=== PATIENT | female | born 1960 | race Caucasian/White ===

== ENCOUNTER 2023-07-28 14:40 | Outpatient (CLI) | payer OTHER ==
[~2023-07-28 14:40] MED LIST: ASA81 MG; MOTRIN800 MG; TORADOL10 MG
== END 2023-07-28 14:52 | disposition home or self-care (01) ==
LOC: RAD 14:40
DX: M19.011 Primary osteoarthritis, right shoulder (principal)

== ENCOUNTER 2023-10-20 12:59 | Outpatient (CLI) | payer OTHER | END 2023-10-20 13:20 | disposition home or self-care (01) | LOC: RAD 12:59 | DX: M19.011 Primary osteoarthritis, right shoulder (principal) ==

== ENCOUNTER 2024-12-08 02:22 | Inpatient (IN) | payer OTHER ==
[~2024-12-08] VITALS: Ht 170.2 cm; Wt 90.7 kg
[2024-12-08] MEDS ORDERED: SYNTHROID175 MCG PO (02:30)
[2024-12-08] MEDS ORDERED: COZAAR100 MG PO (02:31)
[2024-12-08] MEDS ORDERED: METFORMIN HCL500 M3 (02:31)
[2024-12-08] MEDS ORDERED: KETOROLAC TROMETHAMINE 60 MG VIAL IM STA (05:13)
[2024-12-08] MEDS ORDERED: KETOROLAC TROMETHAMINE 60 MG VIAL IM ONE (05:22)
[2024-12-08 06:13] LABS: PH,URINE 5.5 (5.0-8.0); URINE APPEARANCE Clear; URINE BILIRRUBIN Negative (NEGATIVE); URINE BLOOD Negative; URINE COLOR Yellow; URINE GLUCOSE Negative (NEGATIVE); URINE KETONE Trace (NEGATIVE); URINE LEUKOCYTE Trace; URINE NITRATE Negative; URINE PROTEIN Negative (NEGATIVE)
[2024-12-08 06:15] LABS: HEMOGLOBIN 14.1 g/dL (12.0-15.00); MEAN CELL VOLUME 92.2 fL (80.00-100.00); MEAN CORPUSCULAR HEMOGLOBIN 30.8 pg (27.00-32.0); MEAN CORPUSCULAR HGB CONC 33.5 g/dl (32.0-36.0); PLATELET COUNT 374 K/uL (150-450); RED BLOOD COUNT 4.56 M/uL (4.00-6.00); RED CELL DISTRIBUTION WIDTH 12.9 % (11.5-14.5)
[2024-12-08 06:22] LABS: URINE BACTERIA 458.9 uL (0.0-1933); URINE CAST 1.47 uL (0.0-1.40); URINE EPITHELIAL CELLS 36.8 uL (0.0-38.8); URINE RBC 4.4 uL (0.0-20.8); URINE WBC 5.5 uL (0.0-23.2)
[2024-12-08 07:06] LABS: CALCIUM 9.7 mg/dL (8.5-10.1); CREATININE SERUM 0.72 mg/dL (0.55-1.02); GFR 81.55; POTASSIUM 4.47 mEq/L (3.5-5.1)
[2024-12-08] MEDS ORDERED: ORPHENADRINE CITRATE 30 MG/ML AMPUL IM STA (07:46)
[2024-12-08] MEDS ORDERED: ORPHENADRINE CITRATE 30 MG/ML AMPUL ONE (07:53)
[2024-12-08] MEDS ORDERED: 0.9 % SODIUM CHLORIDE 1,000 ML IV ONE (08:30)
[2024-12-08] MEDS ORDERED: BARIUM SULFATE 450 ML ORAL.SUSP PO ONE (08:58)
[2024-12-08] MEDS ORDERED: ACETAMINOPHEN 500 MG GEL..CAP PO PRN (17:45)
[2024-12-08] MEDS ORDERED: HYOSCYAMINE SULFATE 0.125 MG TAB.SUBL PO ONE (17:45)
[2024-12-08] MEDS ORDERED: FAMOTIDINE IV PUSH ONE (17:45)
[2024-12-08] MEDS ORDERED: DEXTROSE 50 % IN WATER 0.5 G/ML DISP.SYRIN IV PRN (17:45)
[2024-12-08] MEDS ORDERED: INSULIN LISPRO 1,000 UNIT/10 ML UNITS SUBCUTANEO PRN (17:45)
[2024-12-08] MEDS ORDERED: SODIUM CHLORIDE 0.9% IV PUSH ONE (17:45)
[2024-12-08] MEDS ORDERED: ONDANSETRON HCL 4 MG in 0.9 % SODIUM CHLORIDE 50 ML IV PRN (17:45)
[2024-12-08] MEDS ORDERED: 0.9 % SODIUM CHLORIDE 1,000 ML IV SCH (17:45)
[2024-12-08] MEDS ORDERED: MORPHINE SULFATE 4 MG/ML CARTRIDGE IV ONE (17:45)
[2024-12-08] MEDS ORDERED: ACETAMINOPHEN 500 MG GEL..CAP PO ONE (17:45)
[2024-12-08] MEDS ORDERED: PIPERACILLIN/TAZOBACTAM SODIUM 3.375 GM in 0.9 % SODIUM CHLORIDE 100 ML IV SCH (18:00)
[2024-12-08] MEDS ORDERED: ONDANSETRON HCL 2 MG/ML VIAL ONE (18:00)
[2024-12-08] MEDS ORDERED: PIPERACILLIN/TAZOBACTAM SODIUM 3.375 GM VIAL IV ONE (18:00)
[2024-12-08] MEDS ORDERED: HYOSCYAMINE SULFATE 0.125 MG TAB.SUBL ONE (18:00)
[2024-12-08] MEDS ORDERED: FAMOTIDINE/PF 20 MG/2 ML VIAL ONE (18:01)
[2024-12-08 18:51] LABS: INR 1.05; PARTIAL THROMBOPLASTIN TIME 30.3 SECONDS (22.0-34.0); PROTHROMBIN TIME 11.4 SECONDS (9.0-11.5)
[2024-12-08] MEDS ORDERED: MORPHINE SULFATE 2 MG/ML CARTRIDGE IV SCH (23:00)
[2024-12-09 01:00] VITALS: BP 115/63; O2SAT 95
[2024-12-09] MEDS ORDERED: LEVOTHYROXINE SODIUM 175 MCG TABLET PO SCH (06:00)
[2024-12-09 08:50] VITALS: BP 154/73
[2024-12-09] MEDS ORDERED: ENOXAPARIN SODIUM 40 MG/0.4 ML SYRINGE SUBCUTANEO SCH (09:00)
[2024-12-09] MEDS ORDERED: FAMOTIDINE/PF 20 MG in 0.9 % SODIUM CHLORIDE 8 ML IV PUSH SCH (09:00)
[2024-12-09] MEDS ORDERED: LOSARTAN POTASSIUM 100 MG TABLET PO SCH (09:00)
[2024-12-09] MEDS ORDERED: MORPHINE SULFATE 2 MG/ML CARTRIDGE IV PRN (14:00)
[2024-12-09] MEDS ORDERED: PIPERACILLIN/TAZOBACTAM SODIUM 3.375 GM VIAL IV ONE (16:35)
[2024-12-09 17:59] VITALS: BP 124/64
[2024-12-10 02:24] VITALS: BP 153/96; O2SAT 98
[2024-12-10] MEDS ORDERED: LEVOTHYROXINE SODIUM 200 MCG TABLET PO SCH (06:00)
[2024-12-10 10:54] VITALS: BP 148/79
[2024-12-10 18:04] LABS: ob NEGATIVE (NEGATIVE)
[2024-12-10 18:33] VITALS: BP 150/90
[2024-12-11 01:09] VITALS: BP 150/82; O2SAT 97
[2024-12-11 06:46] LABS: HEMATOCRIT 35.7 % (36.0-45.00); HEMOGLOBIN 12.3 g/dL (12.0-15.00); MEAN CELL VOLUME 91.7 fL (80.00-100.00); MEAN CORPUSCULAR HEMOGLOBIN 31.5 pg (27.00-32.0); MEAN CORPUSCULAR HGB CONC 34.4 g/dl (32.0-36.0); PLATELET COUNT 294 K/uL (150-450); RED BLOOD COUNT 3.89 M/uL (4.00-6.00); RED CELL DISTRIBUTION WIDTH 12.9 % (11.5-14.5)
[2024-12-11 08:07] LABS: ALBUMIN 3.4 gm/dL (3.4-5.0); BILIRUBIN TOTAL 0.93 mg/dL (0.3-1.2); CALCIUM 8.6 mg/dL (8.5-10.1); CREATININE SERUM 0.58 mg/dL (0.55-1.02); GFR 104.66; GLOBULINA 2.6 G/DL (2.4-3.5); POTASSIUM 3.86 mEq/L (3.5-5.1)
[2024-12-11 08:11] VITALS: BP 155/60; O2SAT 97
[2024-12-11 08:24] LABS: C-REACTIVE PROTEIN 1.44 MG/DL (0.00-0.29)
[2024-12-11] MEDS ORDERED: POTASSIUM CHLORIDE/D5-0.45NACL 1,000 ML IV SCH (09:00)
[2024-12-11 17:37] VITALS: BP 141/70
[2024-12-11] MEDS ORDERED: MORPHINE SULFATE 2 MG/ML CARTRIDGE IV PRN (23:15)
[2024-12-12 01:32] VITALS: BP 143/83; O2SAT 96
[2024-12-12] MEDS ORDERED: SODIUM CHLORIDE 0.45 % 1,000 ML IV SCH (07:30)
[2024-12-12 08:12] VITALS: BP 160/90; O2SAT 97
[2024-12-12 17:43] VITALS: BP 150/90
[2024-12-12] MEDS ORDERED: LACTOBACILLUS ACIDOPHILUS 1 CAP CAP PO SCH (17:49)
[2024-12-13 01:33] VITALS: BP 108/64; O2SAT 97
[2024-12-13 08:37] VITALS: BP 131/82
[2024-12-13 17:58] VITALS: BP 149/82
[2024-12-14 00:49] VITALS: BP 147/83
[2024-12-14 08:44] LABS: HEMATOCRIT 36.2 % (36.0-45.00); HEMOGLOBIN 12.3 g/dL (12.0-15.00); MEAN CELL VOLUME 92.4 fL (80.00-100.00); MEAN CORPUSCULAR HEMOGLOBIN 31.3 pg (27.00-32.0); MEAN CORPUSCULAR HGB CONC 33.9 g/dl (32.0-36.0); PLATELET COUNT 302 K/uL (150-450); RED BLOOD COUNT 3.92 M/uL (4.00-6.00); RED CELL DISTRIBUTION WIDTH 13.3 % (11.5-14.5)
[2024-12-14 08:50] VITALS: BP 160/89
[2024-12-14 09:22] LABS: ALBUMIN 3.2 gm/dL (3.4-5.0); BILIRUBIN TOTAL 0.95 mg/dL (0.3-1.2); CALCIUM 8.8 mg/dL (8.5-10.1); CREATININE SERUM 0.69 mg/dL (0.55-1.02); GFR 85.65; GLOBULINA 2.8 G/DL (2.4-3.5); POTASSIUM 4.55 mEq/L (3.5-5.1)
== END 2024-12-14 14:27 | disposition home or self-care (01) | DRG 392 ==
LOC: ER 02:25 → MEDI 18:26
PROVIDERS: General Practice; Internal Medicine Infectious Disease; ADMIT Internal Medicine; ATTEND Internal Medicine
PROC: BW21ZZZ Computerized Tomography (CT Scan) of Abdomen and Pelvis (ICD-10-PCS; principal; 2024-12-08)
PROC: CF1C1ZZ Planar Nuclear Medicine Imaging of Hepatobiliary System, All using Technetium 99m (Tc-99m) (ICD-10-PCS; 2024-12-10)
DX: K57.92 Diverticulitis of intestine, part unspecified, without perforation or abscess without bleeding (principal); K80.20 Calculus of gallbladder without cholecystitis without obstruction; K52.9 Noninfective gastroenteritis and colitis, unspecified; G47.33 Obstructive sleep apnea (adult) (pediatric); I10 Essential (primary) hypertension; E11.9 Type 2 diabetes mellitus without complications; Z79.4 Long term (current) use of insulin